=== PATIENT | male | born 1995 | race American Indian/Alaskan Native ===

== ENCOUNTER 2020-07-08 00:18 | Emergency (ER) | payer OTHER ==
[2020-07-08 00:58] VITALS: BP 115/65
== END 2020-07-08 04:20 | disposition left against medical advice (07) ==
LOC: ED 00:18
DX: R19.7 Diarrhea, unspecified (principal); R11.10 Vomiting, unspecified; Z53.21 Procedure and treatment not carried out due to patient leaving prior to being seen by health care provider